=== PATIENT | female | born 1955 | race Caucasian/White ===

== ENCOUNTER 2016-09-30 12:53 | Emergency (ER) | payer MEDICARE ==
[~2016-09-30] VITALS: Ht 162.6 cm; Wt 74.8 kg
[2016-09-30 13:18] VITALS: BP 167/104
[2016-09-30] MEDS ORDERED: TRAM-48 PO (14:09)
--- NOTE | 2016-09-30 14:09 | PHYS DOC ---
Past Medical History Past Medical History: Fibromyalgia Additional Past Medical Histor: SPINAL STENOSIS, HERNIATED DISC Past Surgical History: Other Additional Past Surgical Histo: SPINAL STIMULATOR PLACED Additional Information: 1 PACK/ DAY Alcohol Use: None Drug Use: None Adult General Chief Complaint Chief Complaint: PAIN CONTROL [facility] HPI Patient is a 61 year old female with history of hypertension and fibromyalgia who presents today with a flareup of her fibromyalgia for couple days. Patient states she she normally follows up with the pain clinic but her pain clinic doctor retired, so she is forced to follow-up with her PCP. She states she feels her PCP is not listening to her pain complaints. She states she was given tramadol for 1 month but it never lasted a month. Review of Systems Review of Systems Constitutional: Denies fever or chills [] Eyes: Denies change in visual acuity, redness, or eye pain [] HENT: Denies nasal congestion or sore throat [] Respiratory: Denies cough or shortness of breath [] Cardiovascular: No additional information not addressed in HPI [] GI: Denies abdominal pain, nausea, vomiting, bloody stools or diarrhea [] : Denies dysuria or hematuria [] Musculoskeletal: fibromyalgia pain chronic Integument: Denies rash or skin lesions [] Neurologic: Denies headache, focal weakness or sensory changes [] Endocrine: Denies polyuria or polydipsia [] Allergies Allergies Allergies Coded Allergies Type Severity Reaction Last Updated Verified Penicillins Allergy Intermediate Swelling 09/30/16 Yes Physical Exam Physical Exam Constitutional: Well developed, well nourished, no acute distress, non-toxic appearance. [] HENT: Normocephalic, atraumatic, bilateral external ears normal, oropharynx moist, no oral exudates, nose normal. [] Eyes: PERRLA, EOMI, conjunctiva normal, no discharge. [] Neck: Normal range of motion, no tenderness, supple, no stridor. [] Cardiovascular:Heart rate regular rhythm, no murmur [] Lungs & Thorax: Bilateral breath sounds clear to auscultation [] Abdomen: Bowel sounds normal, soft, no tenderness, no masses, no pulsatile masses. [] Skin: Warm, dry, no erythema, no rash. [] Back: No tenderness, no CVA tenderness. [] Extremities: No tenderness, no cyanosis, no clubbing, ROM intact, no edema. [] Neurologic: Alert and oriented X 3, normal motor function, normal sensory function, no focal deficits noted. [] Psychologic: Affect normal, judgement normal, mood normal. [] Current Patient Data Vital Signs Vital Signs Date Time Temp Pulse Resp B/P (MAP) Pulse Ox O2 Delivery O2 Flow Rate FiO2 09/30/16 13:18 98.1 84 18 98 Room Air 98.1 EKG EKG [] Radiology/Procedures Radiology/Procedures [] Course & Med Decision Making Course & Med Decision Making Pertinent Labs and Imaging studies reviewed. (See chart for details) Patient is in the ED with a flareup of fibromyalgia pain. Gave her prescription for Ultram, provided her pain clinic doctor as well as a list of primary care doctors for her to follow-up. Her blood pressure was elevated in the ED. She states she has history of hypertension and her BPs have been high for months, she states her PCP has been monitoring her BP's monthly. I recommended she takes the pain medicine and rechecks her BP at home. If he it still elevated she needs to contact her doctor. She has no cardiac or neurological symptoms. Dragon Disclaimer Dragon Disclaimer This electronic medical record was generated, in whole or in part, using a voice recognition dictation system. Departure Departure Impression: Primary Impression: Accelerated hypertension Additional Impression: Fibromyalgia Disposition: 01 HOME, SELF-CARE Condition: STABLE Referrals: CELINA HAGEN (PCP) Follow-up with your primary care doctor or doctor from the list provided. MARVIN RODRIGUEZ MD Call the pain clinic doctor provided and follow-up as soon as possible Patient Instructions: Fibromyalgia Additional Instructions: You were seen for a flare up of chronic fibromyalgia pain. We gave you a list of primary care doctors as well as a pain clinic doctor. Contact them and set up a follow-up appointment as soon as possible. You also need to follow-up with the primary care doctor for your high blood pressure. Scripts Tramadol Hcl (ULTRAM) 50 Mg Tablet 1 TAB PO Q6HRS, #30 TAB Prov: JEROMY PAULA APRN 09/30/16 Problem Qualifiers JEROMY PAULA APRN Sep 30, 2016 14:09
== END 2016-09-30 14:27 | disposition home or self-care (01) ==
LOC: ER 12:53
DX: M79.7 Fibromyalgia (principal); I10 Essential (primary) hypertension; M48.00 Spinal stenosis, site unspecified; F17.200 Nicotine dependence, unspecified, uncomplicated; Z88.0 Allergy status to penicillin
CPT/HCPCS: 99283

== ENCOUNTER 2019-01-25 14:53 | Emergency (ER) | payer MEDICARE ==
[~2019-01-25] VITALS: Ht 162.6 cm; Wt 77.1 kg
[~2019-01-25 14:53] MED LIST: TRAM-48 PO
[2019-01-25] MEDS ORDERED: predniSONE 10 MG TABLET PO ONE (16:15)
[2019-01-25] MEDS ORDERED: CYCL10TA2 PO (16:23)
[2019-01-25] MEDS ORDERED: METH4TAB2 PO (16:23)
--- NOTE | 2019-01-25 16:23 | PHYS DOC ---
Past Medical History Past Medical History: Fibromyalgia Additional Past Medical Histor: SPINAL STENOSIS, HERNIATED DISC Past Surgical History: Other Additional Past Surgical Histo: SPINAL STIMULATOR PLACED Alcohol Use: None Drug Use: None Adult General Chief Complaint Chief Complaint: LOWER EXT PAIN HPI HPI Patient is a 63 year old female with history of fibromyalgia who presents to the ED today complaining of left lower extremity pain that she believes is musculoskeletal and began a couple days ago. Patient describes the pain as throbbing and intermittent worse on moving around. Denies any known injury. Denies any loss of bowel/bladder function. She states she is currently on meloxicam With minimal relief Review of Systems Review of Systems Constitutional: Denies fever or chills [] Musculoskeletal: Reports left lower extremity pain Integument: Denies rash or skin lesions [] Neurologic: Denies headache, focal weakness or sensory changes [] All other systems were reviewed and found to be within normal limits, except as documented in this note. Current Medications Current Medications Current Medications Medications (Trade) Dose Ordered Sig/Senthil Start Time Stop Time Status Last Admin Dose Admin Prednisone (Prednisone) 50 mg 1X ONCE 01/25/19 16:15 01/25/19 16:16 DC Allergies Allergies Allergies Coded Allergies Type Severity Reaction Last Updated Verified Penicillins Allergy Intermediate Swelling 09/30/16 Yes Physical Exam Physical Exam Constitutional: Well developed, well nourished, no acute distress, non-toxic appearance. [] Abdomen: Bowel sounds normal, soft, no tenderness, no masses, no pulsatile masses. [] Skin: Warm, dry, no erythema, no rash. [] Back: No tenderness, no CVA tenderness. [] Extremities: No tenderness, no cyanosis, no clubbing, ROM intact, no edema. [] Neurologic: Alert and oriented X 3, normal motor function, normal sensory function, no focal deficits noted. [] Psychologic: Affect normal, judgement normal, mood normal. [] EKG EKG [] Radiology/Procedures Radiology/Procedures [] Course & Med Decision Making Course & Med Decision Making Pertinent Labs and Imaging studies reviewed. (See chart for details) This is a 63-year-old. Patient presenting to the ED today with left lower extremity pain that appears musculoskeletal. Patient is currently on meloxicam. Gave her prescription for cyclobenzaprine as well as Medrol Dosepak. Ice elevation encouraged. Follow-up with PCP next week. Jackieon Disclaimer Jackieon Disclaimer This electronic medical record was generated, in whole or in part, using a voice recognition dictation system. Departure Departure Impression: Primary Impression: Musculoskeletal pain of left lower extremity Disposition: HOME, SELF-CARE Condition: STABLE (ERASED) Referrals: ERENDIRA MORALEZ MD (PCP) follow up next week Patient Instructions: Musculoskeletal Pain Additional Instructions: You were evaluated in the emergency room for left lower extremity pain. Continue taking meloxicam. Take the rest of the prescribed medications as ordered. Follow-up with your doctor next week. [] Scripts Methylprednisolone (MEDROL) 4 Mg Tab.ds.pk 1 PKG PO UD, #1 PKG Prov: JEROMY PAULA APRN 01/25/19 Cyclobenzaprine Hcl (CYCLOBENZAPRINE HCL) 10 Mg Tablet 1 TAB PO TID, #30 TAB Prov: JEROMY PAULA APRN 01/25/19 JEROMY PAULA APRN Jan 25, 2019 16:23
[2019-01-25 16:25] VITALS: BP 130/74
== END 2019-01-25 16:46 | disposition home or self-care (01) ==
LOC: ER 14:53
DX: M79.605 Pain in left leg (principal); M79.7 Fibromyalgia; Z88.0 Allergy status to penicillin
CPT/HCPCS: 99283; J7512